=== PATIENT | male | born 1990 | race African-American/Black ===

== ENCOUNTER 2023-11-08 10:51 | Emergency (ER) | payer SELFPAY ==
[~2023-11-08] VITALS: Ht 180.3 cm; Wt 73.0 kg
[2023-11-08] VITALS (13 sets, daily range): BP systolic 116–135; BP diastolic 68–84
[2023-11-08 11:51] LABS: BASO% 0.5 % (0-3); EOS% 8.4 % (0-8); HEMOGLOBIN 13.8 g/dl (14.0-18.0); LYMPH% 38.7 % (15-41); MEAN CELL VOLUME 98.1 fL CALC (80.0-100.0); MEAN CORPUSCULAR HGB CONC 33.7 g/dL CAL (32.0-36.0); MONO% 15.4 % (2-13); NEUT# 1.41 thou/uL (1.82-7.42); RED BLOOD COUNT 4.18 mill/uL (4.70-6.10); RED CELL DISTRI WIDTH 12.2 % (11.5-15.5)
[2023-11-08 12:28] LABS: ALBUMIN 4.2 g/dL (3.2-5.0); ALKALINE PHOSPHATASE 58 u/l (38-126); ANION GAP 9 (6-22 (CALC)); BILIRUBIN, TOTAL 0.6 mg/dL (0.2-1.3); BUN 12 mg/dL (9-20); BUN/CREATININE RATIO 11 (12-20 (CALC)); CARBON DIOXIDE 26 mmol/l (22-30); CHLORIDE 106 mmol/l (95-108); CREATININE 1.1 mg/dL (0.7-1.3); GFR FOR AFR.AMER. > 60 ML/MIN (>=60 (CALC)); GFR OTHER RACES > 60 ML/MIN (>=60 (CALC)); POTASSIUM 4.1 mmol/l (3.5-5.1); SGOT/AST 28 u/l (17-59); SODIUM 137 mmol/l (137-146); TOTAL PROTEIN 7.3 g/dL (6.3-8.2)
[2023-11-08] MEDS ORDERED: PROAIR HFA IN ×2 (13:47→14:52)
[2023-11-08] MEDS ORDERED: ZPAK PO (13:47)
[2023-11-08] MEDS ORDERED: PREDNISONE20 MG PO (13:47)
== END 2023-11-08 14:53 | disposition home or self-care (01) | DRG 203 ==
LOC: ED 10:51
PROVIDERS: Family Medicine
DX: J45.901 Unspecified asthma with (acute) exacerbation (principal)

== ENCOUNTER 2024-05-30 23:52 | Emergency (ER) | payer SELFPAY ==
[~2024-05-30] VITALS: Ht 180.3 cm; Wt 65.0 kg
[~2024-05-30 23:52] MED LIST: PREDNISONE20 MG PO; PROAIR HFA IN; ZPAK PO
[2024-05-31 00:06] VITALS: BP 116/73
[2024-05-31] MEDS ORDERED: ACETAMINOPHEN 500 MG TAB PO ONE (00:10)
[2024-05-31] MEDS ORDERED: traMADol HCL 50 MG/TAB PO ONE (00:10)
[2024-05-31] MEDS ORDERED: PENICILLIN G BENZATHINE 1.2 MU/2 ML SYR IM ONE (00:10)
[2024-05-31] MEDS ORDERED: NAPROXEN 250 MG/TAB PO ONE (00:10)
[2024-05-31 00:15] VITALS: BP 123/72
[2024-05-31 00:30] VITALS: BP 114/68
[2024-05-31 00:45] VITALS: BP 112/67
[2024-05-31 01:00] VITALS: BP 117/68
[2024-05-31 01:20] VITALS: BP 117/68
== END 2024-05-31 01:20 | disposition home or self-care (01) | DRG 159 ==
LOC: ED 23:52
DX: K04.7 Periapical abscess without sinus (principal); K02.9 Dental caries, unspecified; J45.909 Unspecified asthma, uncomplicated; Z72.0 Tobacco use
CPT/HCPCS: J0561